=== PATIENT | female | born 1940 ===

== ENCOUNTER 2023-04-08 07:30 | Day surgery (SDC) | payer OTHER ==
[2023-04-08] MEDS ORDERED: fentaNYL CITRATE 50 MCG/ML AMPUL IV ONE (15:00)
[2023-04-08] MEDS ORDERED: MIDAZOLAM HCL 2 MG/2 ML VIAL IV ONE (15:00)
[2023-04-08] MEDS ORDERED: DIPHENHYDRAMINE HCL 50 MG/ML VIAL 1ML IV ONE (15:00)
== END 2023-04-08 15:15 | disposition home or self-care (01) ==
LOC: AMB-ENDOS 07:30
PROVIDERS: ATTEND Surgery
DX: K62.5 Hemorrhage of anus and rectum (principal); K57.30 Diverticulosis of large intestine without perforation or abscess without bleeding; R19.4 Change in bowel habit; K64.8 Other hemorrhoids; Z88.0 Allergy status to penicillin